=== PATIENT | female | born 1980 | race African-American/Black ===

== ENCOUNTER 2019-12-23 17:21 | Emergency (ER) | payer SELFPAY ==
[~2019-12-23] VITALS: Ht 170.2 cm; Wt 72.6 kg
--- NOTE | 2019-12-23 18:04 | NUR ---
spoke privately with patient giving patient opportunity to vent
--- NOTE | 2019-12-23 18:19 | Emergency Department Note ---
History of Present Illnes History of Present Illness Chief Complaint: General Medicine Complaints History of Present Illness This is a 39 year old female arrived to the ED feeling anxious- pt denies any SI/HI. 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 Patient states she ran out of her Ativan 4 months ago. Historian: Patient Arrival Mode: Car Severity: mild Onset quality: gradual Timing of current episode: constant Progression: worsening Chronicity: recurrent Relieving factors: none Past Medical/Family History Physician Review I have reviewed the patient's past medical and family history. Any updates have been documented here. Past Medical History Recent Fever: No Clinical Suspicion of Infectio: No New/Unexplained Change in Ment: No Past Medical History: Anxiety, Depression Past Surgical History: Social History Smoking Cessation: Never Smoker Alcohol Use: Social Physically hurt or threatened: No Review of Systems Review of Systems Constitutional: Reports no symptoms EENTM: Reports no symptoms Cardiovascular: Reports no symptoms Respiratory: Reports no symptoms Gastrointestinal: Reports no symptoms Genitourinary: Reports no symptoms Musculoskeletal: Reports no symptoms Integumentary: Reports no symptoms Neurological: Reports no symptoms Psychological: Reports as per HPI, Reports anxiety Endocrine: Reports no symptoms Hematological/Lymphatic: Reports no symptoms Physical Exam Related Data Allergies: Coded Allergies: No Known Allergies (Unverified , 12/23/19) Triage Vital Signs Vital Signs Date Time Temp Pulse Resp B/P (MAP) Pulse Ox O2 Delivery O2 Flow Rate FiO2 12/23/19 17:32 99.0 78 18 155/103 100 Room Air Vital signs reviewed: Yes Physical Exam CONSTITUTIONAL Constitutional: Present well-developed, Present well-nourished HENT HENT: Present normocephalic, Present atraumatic, Present oropharynx clear/moist, Present nose normal HENT L/R: Present left ext ear normal, Present right ext ear normal EYES Eyes: Reports PERRL, Reports conjunctivae normal NECK Neck: Present ROM normal PULMONARY Pulmonary: Present effort normal, Present breath sounds normal CARDIOVASCULAR Cardiovascular: Present regular rhythm, Present heart sounds normal, Present capillary refill normal, Present normal rate GASTROINTESTINAL Abdominal: Present soft, Present nontender, Present bowel sounds normal GENITOURINARY Genitourinary: Present exam deferred SKIN Skin: Present warm, Present dry MUSCULOSKELETAL Musculoskeletal: Present ROM normal NEUROLOGICAL Neurological: Present alert, Present oriented x 3, Present no gross motor or sensory deficits PSYCHOLOGICAL Psychological: Present judgement normal Assessment & Plan Medical Decision Making MDM 39-year-old well-appearing female arrived to the 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 Patient states her daughter suffers from underlying pulmonary disease and is concerned of passing the virus onto her. Patient has good insight and judgment and has a support system. No concerns of suicidal or homicidal tendencies. Patient appears to have judgment and is competent for medical decision-making. Patient stable for discharge, prescription for Ativan given outpatient [facility] information given. Medical causes were also ruled out and considered in this patient including but not limited to pulmonary embolus, ACS and/or other life-threatening process. Patient with normal vital signs and normal exam, any metabolic cause of anxiety ruled out. Assessment & Plan Final Impression: (1) Anxiety Depart Disposition: HOME, SELF-CARE Last Vital Signs Date Time Temp Pulse Resp B/P (MAP) Pulse Ox O2 Delivery O2 Flow Rate FiO2 12/23/19 17:32 99.0 78 18 155/103 100 Room Air REJI MARTIN DO Dec 23, 2019 18:19
== END 2019-12-23 18:05 | disposition home or self-care (01) ==
LOC: ER 17:35
DX: F41.9 Anxiety disorder, unspecified (principal); F32.9 Major depressive disorder, single episode, unspecified
CPT/HCPCS: 99282

== ENCOUNTER 2020-03-14 09:16 | Emergency (ER) | payer SELFPAY ==
[~2020-03-14] VITALS: Ht 170.2 cm; Wt 72.6 kg
== END 2020-03-14 09:43 | disposition home or self-care (01) ==
LOC: ER 09:30
DX: F41.9 Anxiety disorder, unspecified (principal); F32.9 Major depressive disorder, single episode, unspecified
CPT/HCPCS: 99282